=== PATIENT | female | born 1955 | race Two or more races ===

== ENCOUNTER 2019-10-24 15:25 | Outpatient (CLI) | payer OTHER ==
[~2019-10-24 15:25] MED LIST: DICLOFENAC SODI75 MG PO; ULTRACET PO
== END 2019-10-24 15:36 | disposition home or self-care (01) ==
LOC: TOM 15:25
PROVIDERS: ATTEND Psychiatry & Neurology Neurology
DX: R55 Syncope and collapse (principal)

== ENCOUNTER 2019-10-31 15:19 | Outpatient (CLI) | payer OTHER | END 2019-10-31 15:26 | disposition home or self-care (01) | LOC: RAD 15:19 | PROVIDERS: ATTEND Psychiatry & Neurology Neurology | DX: M79.641 Pain in right hand (principal) ==

== ENCOUNTER → 2020-01-19 | Outpatient (CLI) | payer OTHER | END | disposition home or self-care (01) | LOC: TOM 14:32 | PROVIDERS: ATTEND General Practice | DX: G93.89 Other specified disorders of brain (principal) ==

== ENCOUNTER 2020-01-28 15:05 | Outpatient (CLI) | payer OTHER | END 2020-01-28 15:16 | disposition home or self-care (01) | LOC: RAD 15:05 | PROVIDERS: ATTEND General Practice | DX: E51.8 Other manifestations of thiamine deficiency (principal) ==

== ENCOUNTER → 2020-04-23 | Emergency (ER) | payer OTHER ==
[~2020-04-23] VITALS: Ht 157.5 cm; Wt 56.7 kg
[~2020-04-23] MED LIST changes: +ATORVASTATIN CA40 MG; +DETROL1 MG; +DITROPAN XL5 MG; +ESCITALOPRA5 MG/5 ML; +GRALISE600 MG; +IBANDRONATE; +LAMOTRIGINE200 MG; +PHENYTOIN50 MG
== END | disposition home or self-care (01) ==
LOC: ER 16:14
DX: M79.644 Pain in right finger(s) (principal); R60.0 Localized edema; S62.511S Displaced fracture of proximal phalanx of right thumb, sequela; X58.XXXS Exposure to other specified factors, sequela

== ENCOUNTER 2020-07-16 10:27 | Outpatient (CLI) | payer OTHER | END 2020-07-16 10:28 | disposition home or self-care (01) | LOC: NUCLEAR 10:27 | PROVIDERS: ATTEND Physical Medicine & Rehabilitation | DX: I87.2 Venous insufficiency (chronic) (peripheral) (principal) ==

== ENCOUNTER 2020-10-07 12:33 | Outpatient (CLI) | payer OTHER | END 2020-10-07 12:40 | disposition home or self-care (01) | LOC: RAD 12:33 | PROVIDERS: ATTEND Podiatrist Foot Surgery | DX: M79.672 Pain in left foot (principal); M79.671 Pain in right foot ==

== ENCOUNTER 2020-11-02 15:28 | Emergency (ER) | payer OTHER ==
[~2020-11-02] VITALS: Ht 152.4 cm; Wt 64.4 kg
[2020-11-02] MEDS ORDERED: IBU800 MG PO (19:09)
== END 2020-11-02 19:48 | disposition home or self-care (01) ==
LOC: ER 15:28
DX: S52.591A Other fractures of lower end of right radius, initial encounter for closed fracture (principal); W18.39XA Other fall on same level, initial encounter; Y93.89 Activity, other specified; Y92.098 Other place in other non-institutional residence as the place of occurrence of the external cause; Y99.8 Other external cause status

== ENCOUNTER 2020-11-10 14:52 | Outpatient (CLI) | payer OTHER ==
[~2020-11-10 14:52] MED LIST changes: +IBU800 MG PO
== END 2020-11-10 14:59 | disposition home or self-care (01) ==
LOC: RAD 14:52
PROVIDERS: ATTEND Orthopaedic Surgery
DX: S52.531A Colles' fracture of right radius, initial encounter for closed fracture (principal)

== ENCOUNTER 2020-11-18 14:48 | Outpatient (CLI) | payer OTHER | END 2020-11-18 14:57 | disposition home or self-care (01) | LOC: TOM 14:48 | PROVIDERS: ATTEND Orthopaedic Surgery | DX: M79.671 Pain in right foot (principal) ==

== ENCOUNTER → 2020-11-18 | Outpatient (CLI) | payer OTHER | END | disposition home or self-care (01) | LOC: NUCLEAR 11-11 13:45 | PROVIDERS: ATTEND Orthopaedic Surgery | DX: M81.0 Age-related osteoporosis without current pathological fracture (principal) ==

== ENCOUNTER 2020-12-09 15:08 | Outpatient (CLI) | payer OTHER | END 2020-12-09 15:23 | disposition home or self-care (01) | LOC: TOM 15:08 | PROVIDERS: ATTEND Psychiatry & Neurology Neurology | DX: G93.89 Other specified disorders of brain (principal); S06.339A Contusion and laceration of cerebrum, unspecified, with loss of consciousness of unspecified duration, initial encounter ==

== ENCOUNTER 2021-03-07 12:57 | Outpatient (CLI) | payer OTHER | END 2021-03-07 13:03 | disposition home or self-care (01) | LOC: LAB 12:57 | PROVIDERS: ATTEND Orthopaedic Surgery | DX: E56.1 Deficiency of vitamin K (principal); E55.9 Vitamin D deficiency, unspecified; M85.88 Other specified disorders of bone density and structure, other site ==

== ENCOUNTER 2021-03-31 15:07 | Outpatient (CLI) | payer OTHER | END 2021-03-31 15:18 | disposition home or self-care (01) | LOC: RAD 15:07 | PROVIDERS: ATTEND Orthopaedic Surgery | DX: M79.671 Pain in right foot (principal); M79.672 Pain in left foot; M25.571 Pain in right ankle and joints of right foot; M25.572 Pain in left ankle and joints of left foot ==

== ENCOUNTER 2021-06-03 08:00 | Day surgery (SDC) | payer OTHER | END 2021-06-03 20:10 | disposition home or self-care (01) | LOC: CIR.AMB 08:00 | PROVIDERS: ATTEND Orthopaedic Surgery | DX: G57.81 Other specified mononeuropathies of right lower limb (principal); G62.9 Polyneuropathy, unspecified; N39.498 Other specified urinary incontinence; Z20.822 Contact with and (suspected) exposure to COVID-19 ==

== ENCOUNTER 2022-07-04 10:06 | Outpatient (CLI) | payer OTHER | END 2022-07-04 10:08 | disposition home or self-care (01) | LOC: NUCLEAR 10:06 | PROVIDERS: ATTEND Orthopaedic Surgery | DX: I87.2 Venous insufficiency (chronic) (peripheral) (principal) ==

== ENCOUNTER 2022-07-05 10:23 | Outpatient (CLI) | payer OTHER | END 2022-07-05 10:34 | disposition home or self-care (01) | LOC: NUCLEAR 10:23 | PROVIDERS: ATTEND Orthopaedic Surgery | DX: I73.89 Other specified peripheral vascular diseases (principal) ==

== ENCOUNTER 2022-07-12 14:48 | Outpatient (CLI) | payer OTHER | END 2022-07-12 15:12 | disposition home or self-care (01) | LOC: LAB 14:48 | PROVIDERS: ATTEND Orthopaedic Surgery | DX: D64.89 Other specified anemias (principal); M06.4 Inflammatory polyarthropathy; M10.9 Gout, unspecified ==

== ENCOUNTER 2022-11-23 12:32 | Emergency (ER) | payer OTHER ==
[~2022-11-23] VITALS: Ht 154.9 cm; Wt 62.6 kg
== END 2022-11-23 13:34 | disposition home or self-care (01) ==
LOC: ER 12:32
DX: M54.16 Radiculopathy, lumbar region (principal)
CPT/HCPCS: 96372; 99284; J1100; J1885

== ENCOUNTER 2022-11-27 12:29 | Emergency (ER) | payer OTHER ==
[~2022-11-27] VITALS: Ht 162.6 cm; Wt 61.7 kg
[2022-11-27 13:54] LABS: HEMATOCRIT 39.5 % (36.0-45.00); HEMOGLOBIN 13.5 g/dL (12.0-15.00); MEAN CELL VOLUME 93.2 fL (80.00-100.00); MEAN CORPUSCULAR HEMOGLOBIN 31.8 pg (27.00-32.0); MEAN CORPUSCULAR HGB CONC 34.1 g/dl (32.0-36.0); PLATELET COUNT 316 K/uL (150-450); RED BLOOD COUNT 4.24 M/uL (4.00-6.00); RED CELL DISTRIBUTION WIDTH 14.8 % (11.5-14.5)
[2022-11-27 14:15] LABS: CALCIUM 9.9 mg/dL (8.5-10.1); CREATININE SERUM 0.78 mg/dL (0.55-1.02); GFR 73.66
[2022-11-27 17:46] LABS: URINE APPEARANCE Cloudy; URINE BACTERIA 1761.3 uL (0.0-1933); URINE BILIRRUBIN Negative (NEGATIVE); URINE BLOOD Small; URINE COLOR Dark Yellow; URINE EPITHELIAL CELLS 77.6 uL (0.0-38.8); URINE GLUCOSE Negative (NEGATIVE); URINE LEUKOCYTE Negative; URINE NITRATE Negative; URINE PROTEIN 30 (NEGATIVE); URINE RBC 55.7 uL (0.0-20.8); URINE WBC 17.7 uL (0.0-23.2)
[2022-11-27] MEDS ORDERED: PEPCID AC20 MG PO (18:06)
== END 2022-11-27 18:15 | disposition home or self-care (01) ==
LOC: ER 12:29
PROVIDERS: General Practice
DX: R10.9 Unspecified abdominal pain (principal); I10 Essential (primary) hypertension; M19.09 Primary osteoarthritis, other specified site; M51.37 Other intervertebral disc degeneration, lumbosacral region; M54.16 Radiculopathy, lumbar region
CPT/HCPCS: 36415; 96365; 96366; 99284; J2405; J3490; J7042

== ENCOUNTER 2023-03-06 10:20 | Outpatient (CLI) | payer OTHER ==
[~2023-03-06 10:20] MED LIST changes: +GABAPENTIN300 M2 PO; +PEPCID AC20 MG PO
== END 2023-03-06 10:27 | disposition home or self-care (01) ==
LOC: NUCLEAR 10:20
PROVIDERS: ATTEND Orthopaedic Surgery
DX: I87.2 Venous insufficiency (chronic) (peripheral) (principal); I80.222 Phlebitis and thrombophlebitis of left popliteal vein

== ENCOUNTER 2023-04-03 13:28 | Outpatient (CLI) | payer OTHER | END 2023-04-03 13:44 | disposition home or self-care (01) | LOC: MRI 13:28 | PROVIDERS: ATTEND Orthopaedic Surgery | DX: M54.50 Low back pain, unspecified (principal); M25.561 Pain in right knee; G57.81 Other specified mononeuropathies of right lower limb | CPT/HCPCS: 72148; 73721 ==

== ENCOUNTER 2023-05-22 10:45 | Emergency (ER) | payer OTHER ==
[~2023-05-22] VITALS: Ht 157.5 cm; Wt 64.4 kg
[2023-05-22] MEDS ORDERED: ADVIL DUAL ACT1 EACH PO (16:11)
== END 2023-05-22 16:16 | disposition home or self-care (01) ==
LOC: ER 10:46
DX: S09.8XXA Other specified injuries of head, initial encounter (principal); W19.XXXA Unspecified fall, initial encounter; Y93.89 Activity, other specified; Y92.89 Other specified places as the place of occurrence of the external cause; Y99.8 Other external cause status

== ENCOUNTER 2023-08-28 15:26 | Outpatient (CLI) | payer OTHER ==
[~2023-08-28 15:26] MED LIST changes: +ADVIL DUAL ACT1 EACH PO
== END 2023-08-28 15:30 | disposition home or self-care (01) ==
LOC: RAD 15:26
PROVIDERS: ATTEND Orthopaedic Surgery
DX: M79.644 Pain in right finger(s) (principal)

== ENCOUNTER → 2023-09-18 11:25 | Outpatient (CLI) | payer OTHER | END | disposition home or self-care (01) | LOC: NUCLEAR 11:25 | PROVIDERS: ATTEND Orthopaedic Surgery | DX: M81.0 Age-related osteoporosis without current pathological fracture (principal) ==

== ENCOUNTER 2024-04-02 11:34 | Outpatient (CLI) | payer OTHER | END 2024-04-02 11:35 | disposition home or self-care (01) | LOC: MRI 11:34 | PROVIDERS: ATTEND Orthopaedic Surgery | DX: M25.561 Pain in right knee (principal); G57.81 Other specified mononeuropathies of right lower limb; M19.041 Primary osteoarthritis, right hand ==

== ENCOUNTER → 2024-04-29 | Outpatient (CLI) | payer OTHER | END | disposition home or self-care (01) | LOC: MRI 13:54 | PROVIDERS: ATTEND Orthopaedic Surgery | DX: M25.561 Pain in right knee (principal); G57.81 Other specified mononeuropathies of right lower limb | CPT/HCPCS: 73721 ==

== ENCOUNTER → 2024-05-07 | Emergency (ER) | payer OTHER ==
[~2024-05-07] VITALS: Ht 157.5 cm; Wt 54.4 kg
== END | disposition left against medical advice (07) ==
LOC: ER
DX: S09.8XXA Other specified injuries of head, initial encounter (principal); W18.39XA Other fall on same level, initial encounter; Y93.89 Activity, other specified; Y92.89 Other specified places as the place of occurrence of the external cause

== ENCOUNTER 2024-08-29 14:42 | Outpatient (CLI) | payer OTHER | END 2024-08-29 14:52 | disposition home or self-care (01) | LOC: MRI 14:42 | DX: M25.571 Pain in right ankle and joints of right foot (principal) | CPT/HCPCS: 73721 ==

== ENCOUNTER 2024-09-02 11:32 | Emergency (ER) | payer OTHER ==
[~2024-09-02] VITALS: Ht 154.9 cm; Wt 67.1 kg
[2024-09-02] MEDS ORDERED: KETOROLAC TROMETHAMINE 60 MG VIAL IM ONE ×2 (14:29→14:30)
[2024-09-02] MEDS ORDERED: IBU800 MG PO (15:54)
== END 2024-09-02 16:21 | disposition home or self-care (01) ==
LOC: ER 11:32
DX: S43.084A Other dislocation of right shoulder joint, initial encounter (principal); W19.XXXA Unspecified fall, initial encounter; Y93.89 Activity, other specified; Y92.89 Other specified places as the place of occurrence of the external cause; Y99.8 Other external cause status; I67.1 Cerebral aneurysm, nonruptured
CPT/HCPCS: 29105; 73030; 96372; 99283; J1885

== ENCOUNTER → 2024-10-16 | Emergency (ER) | payer OTHER ==
[~2024-10-16] VITALS: Ht 154.9 cm; Wt 66.2 kg
[~2024-10-16] MED LIST changes: +ALENDRONATE SOD70 MG; +ATORVASTATIN CA10 MG; +CEFTRIAXONE SODIUM 1,000 MG VIAL IM ONE; +DUI500 PO; +ESCITALOPRAM OX10 MG; +ETODOLAC500 M1; +LAMICTAL200 MG; +SPIRONOLACTONE25 MG
== END | disposition home or self-care (01) ==
LOC: ER 16:52
DX: S81.812A Laceration without foreign body, left lower leg, initial encounter (principal); X58.XXXA Exposure to other specified factors, initial encounter; Y93.89 Activity, other specified; Y92.89 Other specified places as the place of occurrence of the external cause; Y99.9 Unspecified external cause status
CPT/HCPCS: 96372; 99282; J0696